=== PATIENT | female | born 1965 | race Caucasian/White ===

== ENCOUNTER → 2017-08-03 | Outpatient (CLI) | payer BC ==
[~2017-08-03] MED LIST: AZIT250T81 PO; CEFD300C3 PO; LVT.1T PO; NALT1TAB PO; SPIR50TA27 PO
--- NOTE | 2017-08-03 10:34 | Diagnostic Imaging Report ---
EXAM: US VENOUS LOWER EXT LT INDICATION: L LOWER LEG SWELLING COMPARISON: None. TECHNIQUE: Duplex, pickard-scale and color-flow imaging of the left lower extremity venous system was performed FINDINGS: The left common femoral vein, superficial femoral vein, profunda femoris, and popliteal veins are normal. These vessels show normal compressibility, color flow, and Doppler augmentation. The deep calf veins demonstrate no distinct intraluminal thrombus where seen. IMPRESSION: Negative venous Doppler of the left lower extremity. Dictated by: Dictated on workstation # [id number]
== END ==
LOC: RAD 09:45
PROVIDERS: ATTEND Family Medicine
DX: M79.89 Other specified soft tissue disorders (principal); M79.661 Pain in right lower leg

== ENCOUNTER 2017-08-11 18:33 | Emergency (ER) | payer BC ==
[~2017-08-11] VITALS: Ht 167.6 cm; Wt 101.6 kg
--- OUTSIDE RECORDS SUMMARY | 2017-08-11 18:38 | XMS REPORT | Continuity of Care Document ---
Author Author [facility] Organization [facility] Address Unknown Phone Unavailable Allergies Active Description Code Type Severity Reaction Onset Reported/Identified Relationship to Patient Clinical Status Yes celecoxib [id number] Drug Allergy Unknown N/A 03/21/2015 Yes prednisone [id number] Drug Allergy Unknown N/A 03/21/2015 Medications Problems Date Dx Coded Attending Type Code Diagnosis Diagnosed By 08/21/2014 Ot 722.10 08/21/2014 GISEL TELLEZ AESTHETICS INSTRUCTOR Ot 715.36 08/21/2014 GISEL TELLEZ AESTHETICS INSTRUCTOR Ot 717.9 08/21/2014 GISEL TELLEZ AESTHETICS INSTRUCTOR Ot 719.06 08/21/2014 GISEL TELLEZ AESTHETICS INSTRUCTOR Ot 719.46 08/21/2014 GISEL TELLEZ AESTHETICS INSTRUCTOR Ot 793.7 09/05/2014 YUANNDER DO, ADRIANA S Ot 244.9 09/05/2014 ORENDER DO, ADRIANA S Ot 611.72 09/05/2014 ORENDER DO, ADRIANA S Ot 780.79 09/05/2014 ORENDER DO, ADRIANA S Ot V70.0 09/08/2014 ORENDER DO, ADRIANA S Ot 244.9 09/08/2014 ORENDER DO, ADRIANA S Ot 611.72 09/08/2014 ORENDER DO, ADRIANA S Ot 780.79 09/08/2014 ORENDER DO, ADRIANA S Ot V70.0 09/08/2014 GISEL TELLEZ M AESTHETICS INSTRUCTOR Ot V76.12 09/14/2014 Ot 722.10 09/14/2014 GISEL TELLEZ AESTHETICS INSTRUCTOR Ot 715.36 09/14/2014 GISEL TELLEZ AESTHETICS INSTRUCTOR Ot 717.9 09/14/2014 GISEL TELLEZ AESTHETICS INSTRUCTOR Ot 719.06 09/14/2014 GISEL TELLEZ AESTHETICS INSTRUCTOR Ot 719.46 09/14/2014 GISEL TELLEZ AESTHETICS INSTRUCTOR Ot 793.7 09/14/2014 GISEL TELLEZ AESTHETICS INSTRUCTOR Ot V76.12 09/18/2014 RUSS MAYES, SY M Ot 611.72 09/28/2014 ORENDER DO, ADRIANA S Ot 244.9 09/28/2014 ORENDER DO, ADIRANA S Ot 611.72 09/28/2014 ORENDER DO, ADRIANA S Ot 780.79 09/28/2014 ORENDER DO, ADRIANA S Ot V70.0 10/19/2014 RUSS MAYES, SY Kiersten Ot 611.72 11/23/2014 RUSS MAYES, SY Kiersten Ot 611.72 12/14/2014 ORENDER DO, ADRIANA S Ot 244.9 12/14/2014 ORENDER DO, ADRIANA S Ot 611.72 12/14/2014 ORENDER DO, ADRIANA S Ot 780.79 12/14/2014 ORENDER DO, ADRIANA S Ot V70.0 01/19/2015 ORENDER DO, ADRIANA S Ot 443.9 01/19/2015 ORENDER DO, ADRIANA S Ot 729.5 03/21/2015 VICENTE PAULA UPHOLSTERY CLEANER Ot 577.0 ACUTE PANCREATITIS 03/21/2015 VICENTE PAULA UPHOLSTERY CLEANER Ot 789.00 ABDOMINAL PAIN, UNSPECIFIED SITE 06/18/2016 YUANNDER DO, ADRIANA S Ot 244.9 HYPOTHYROIDISM NOS 06/18/2016 ORENDER DO, ADRIANA S Ot 611.72 LUMP OR MASS IN BREAST 06/18/2016 YUANNDER DO, ADRIANA S Ot 780.79 OTH MALAISE FATIGUE 06/18/2016 ORENDER DO, ADRIANA S Ot V70.0 ROUTINE MEDICAL EXAM 06/18/2016 YUANNDER DO, ADRIANA S Ot 443.9 PERIPH VASCULAR DIS NOS 06/18/2016 ORENDER DO, ADRIANA S Ot 729.5 PAIN IN LIMB 06/18/2016 YUANNDER DO, ADRIANA S Ot Z12.31 ENCNTR SCREEN MAMMOGRAM FOR MALIGNANT NE 06/23/2016 ADRIANA ORTEGA DO Ot Z12.31 ENCNTR SCREEN MAMMOGRAM FOR MALIGNANT NE 08/04/2017 ADRIANA ORTEGA DO Ot M79.661 PAIN IN RIGHT LOWER LEG 08/04/2017 ADRIANA ORTEGA DO Ot M79.89 OTHER SPECIFIED SOFT TISSUE DISORDERS Procedures Results Encounters ACCT No. Visit Date/Time Discharge Status Pt. Type Provider Facility Loc./Unit Complaint [id number] 08/03/2017 09:45:00 2016 23:59:59 CLS Outpatient ADRIANA ORTEGA DO [facility] RAD R LOWER LEG SWELLING/PAIN [id number] 06/17/2016 08:15:00 2015 23:59:59 CLS Outpatient ADRIANA ORTEGA DO S [facility] RAD SCREENING [id number] 03/21/2015 16:43:00 2014 19:14:00 DIS Emergency VICENTE PAULA UPHOLSTERY CLEANER [facility] ER ABD PAIN [id number] 12/14/2014 12:33:00 2014 23:59:59 CLS Outpatient ADRIANA ORTEGA DO [facility] RAD BILAT LEG PAIN, [id number] 09/14/2014 12:32:00 2014 23:59:59 CLS Outpatient RUSS MAYES, SY Burch [facility] RAD [id number] 09/01/2014 08:35:00 2014 23:59:59 CLS Outpatient ADRIANA ORTEGA DO S [facility] RAD BILAT BREAST NODULES,YRLY LAB, FATIGUE,HYPOTHYROIS [id number] 08/21/2014 14:04:00 2013 23:59:59 CLS Outpatient GISEL TELLEZ [facility] RAD [id number] 02/14/2014 14:34:00 2013 23:59:59 CLS Outpatient GISEL TELLEZP [facility] RAD [id number] 07/31/2009 08:35:00 Document Registration
[2017-08-11] MEDS ORDERED: ANTACID SUSP 30 ML UDC (MYLANTA) PO ONE (19:30)
[2017-08-11] MEDS ORDERED: LIDOCAINE 2% VISCOUS 15 ML UDC PO ONE (19:30)
--- NOTE | 2017-08-11 19:32 | ED Abdominal Pain ---
General Chief Complaint: Abdominal/GI Problems Stated Complaint: ABD PAIN Source of Information: Patient Exam Limitations: No Limitations History of Present Illness Time Seen By Provider: 19:31 Initial Comments To ER with left upper quadrant abdominal pain that she awakened with yesterday morning. She does not have any associated nausea or vomiting. No constipation or diarrhea. No dysuria. Timing/Duration: 1-2 Days Severity/Quality: Moderate Location: [facility] Radiation: No Radiation Activities at Onset: None Associated Symptoms: Nausea/Vomiting Allergies and Home Medications Allergies Coded Allergies: celecoxib (Unverified Allergy, Unknown, 03/21/15) prednisone (Unverified Allergy, Unknown, 03/21/15) Home Medications Azithromycin 250 Mg Tablet, 250 MG PO DAILY, (Reported) Cefdinir 300 Mg Capsule, 1 EACH PO BID, #14 Prescribed by: VICENTE PAULA on 03/21/151815 Ciprofloxacin HCl 500 Mg Tablet, 500 MG PO BID, #6 Prescribed by: VICENTE PAULA on 08/11/172051 Hydrocodone/Acetaminophen 1 Each Tablet, 1 EACH PO Q4H PRN for PAIN-MODERATE TO SEVERE, #20 Prescribed by: VICENTE PAULA on 08/11/172051 Levothyroxine Sodium 100 Mcg Tablet, 100 MCG PO DAILY, (Reported) Naltrexone HCl/Bupropion HCl 1 Each Tablet.er, 1 EACH PO DAILY, (Reported) Spironolactone 50 Mg Tablet, 50 MG PO DAILY, (Reported) Review of Systems Constitutional: see HPI EENTM: No Symptoms Reported Respiratory: No Symptoms Reported Cardiovascular: No Symptoms Reported Gastrointestinal: See HPI, Abdominal Pain, Denies Constipated, Denies Diarrhea , Denies Nausea Genitourinary: No Symptoms Reported Musculoskeletal: no symptoms reported Skin: no symptoms reported Psychiatric/Neurological: No Symptoms Reported Endocrine: No Symptoms Reported Hematologic/Lymphatic: No Symptoms Reported Past Bcxsdpi-Coevrb-Zqkrgh Hx Patient Social History Recent Foreign Travel: No Contact w/Someone Who Travel: No Seasonal Allergies Seasonal Allergies: No Surgeries Surgeries: Adenoidectomy, Gallbladder, Tonsillectomy Cardiovascular Cardiac Disorders: Hypertension 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 Endocrine Endocrine Disorders: Hypothyroidsim Physical Exam Vital Signs VS - Last 72 Hours, by Label 08/11/17 19:07 Temp 97.8 Pulse 80 Resp 20 B/P (MAP) 164/102 (122) Pulse Ox 98 O2 Delivery Room Air Capillary Refill : General Appearance: WD/WN, no apparent distress HEENT: PERRL/EOMI, normal ENT inspection Respiratory: normal breath sounds, no respiratory distress, no accessory muscle use Cardiovascular: regular rate, rhythm, no murmur Gastrointestinal: normal bowel sounds, soft, tenderness (epigastric and left upper quadrant are tender to palpation.) Extremities: normal range of motion, non-tender Neurologic/Psychiatric: alert, normal mood/affect, oriented x 3 Skin: normal color, warm/dry Progress/Results/Core Measures Results/Orders Lab Results Laboratory Tests Test 08/11/17 19:11 08/11/17 19:31 Range/Units Urine Color YELLOW Urine Clarity CLEAR Urine pH 7 5-9 Urine Specific [place] 1.010 L 1.016-1.022 Urine Protein NEGATIVE NEGATIVE Urine Glucose (UA) NEGATIVE NEGATIVE Urine Ketones NEGATIVE NEGATIVE Urine Nitrite NEGATIVE NEGATIVE Urine Bilirubin NEGATIVE NEGATIVE Urine Urobilinogen NORMAL NORMAL MG/DL Urine Leukocyte Esterase 2+ H NEGATIVE Urine RBC (Auto) NEGATIVE NEGATIVE Urine RBC NONE /HPF Urine WBC 5-10 H /HPF Urine Squamous Epithelial Cells 2-5 /HPF Urine Crystals NONE /LPF Urine Bacteria FEW H /HPF Urine Casts NONE /LPF Urine Mucus NEGATIVE /LPF Urine Culture Indicated YES White Blood Count 11.2 H 4.3-11.0 10^3/uL Red Blood Count 4.99 4.35-5.85 10^6/uL Hemoglobin 15.9 11.5-16.0 G/DL Hematocrit 46 35-52 % Mean Corpuscular Volume 92 80-99 FL Mean Corpuscular Hemoglobin 32 25-34 PG Mean Corpuscular Hemoglobin Concent 35 32-36 G/DL Red Cell Distribution Width 12.2 10.0-14.5 % Platelet Count 170 130-400 10^3/uL Mean Platelet Volume 11.5 H 7.4-10.4 FL Neutrophils (%) (Auto) 70 42-75 % Lymphocytes (%) (Auto) 21 12-44 % Monocytes (%) (Auto) 8 0-12 % Eosinophils (%) (Auto) 1 0-10 % Basophils (%) (Auto) 0 0-10 % Neutrophils # (Auto) 7.9 H 1.8-7.8 X 10^3 Lymphocytes # (Auto) 2.3 1.0-4.0 X 10^3 Monocytes # (Auto) 0.9 0.0-1.0 X 10^3 Eosinophils # (Auto) 0.1 0.0-0.3 10^3/uL Basophils # (Auto) 0.0 0.0-0.1 10^3/uL Sodium Level 137 135-145 MMOL/L Potassium Level 4.0 3.6-5.0 MMOL/L Chloride Level 100 98-107 MMOL/L Carbon Dioxide Level 27 21-32 MMOL/L Anion Gap 10 5-14 MMOL/L Blood Urea Nitrogen 12 7-18 MG/DL Creatinine 0.85 0.60-1.30 MG/DL Estimat Glomerular Filtration Rate > 60 BUN/Creatinine Ratio 14 Glucose Level 106 H 70-105 MG/DL Calcium Level 9.1 8.5-10.1 MG/DL Total Bilirubin 0.7 0.1-1.0 MG/DL Aspartate Amino Transf (AST/SGOT) 10 5-34 U/L Alanine Aminotransferase (ALT/SGPT) 13 0-55 U/L Alkaline Phosphatase 71 40-136 U/L Total Protein 6.7 6.4-8.2 GM/DL Albumin 4.1 3.2-4.5 GM/DL Lipase 310 H 8-78 U/L Serum Alcohol < 10 <10 MG/DL My Orders Orders - VICENTE PAULA PIPE STRAIGHTENER Cbc With Automated Diff (08/11/17 19:20) Comprehensive Metabolic Panel (08/11/17 19:20) Lipase (08/11/17 19:20) Saline Lock/Iv-Start (08/11/17 19:20) Ct Abdomen/Pelvis W (08/11/17 19:20) Antacid Suspension (Mylanta Suspension (08/11/17 19:30) Lidocaine 2% Viscous 15 Ml (Xylocaine Vi (08/11/17 19:30) Ua Culture If Indicated (08/11/17 19:29) Alcohol (08/11/17 19:29) Iohexol Injection (Omnipaque 350 Mg/Ml 1 (08/11/17 19:45) Ns (Ivpb) (Sodium Chloride 0.9% Ivpb Bag (08/11/17 19:45) Urine Culture (08/11/17 19:11) Fentanyl Injection (Sublimaze Injection (08/11/17 20:30) Fentanyl Injection (Sublimaze Injection (08/11/17 20:25) Ns Iv 1000 Ml (Sodium Chloride 0.9%) (08/11/17 21:00) Rx-Hydrocodone/Apap 5-325 Mg (Rx-Vicodin (08/11/17 21:00) Ns Iv 1000 Ml (Sodium Chloride 0.9%) (08/11/17 20:54) Ketorolac Injection (Toradol Injection) (08/11/17 21:00) Medications Given in ED Current Medications Medications Dose Ordered Sig/Collins Route Start Time Stop Time Status Last Admin Dose Admin Al Hydrox/Mg Hydrox/Simethicone 30 ml ONCE ONCE PO 08/11/17 19:30 08/11/17 19:31 DC 08/11/17 19:29 30 ML Fentanyl Citrate 50 mcg ONCE ONCE IVP 08/11/17 20:30 08/11/17 20:31 DC 08/11/17 20:29 50 MCG Iohexol 100 ml ONCE ONCE IV 08/11/17 19:45 08/11/17 19:46 DC 08/11/17 20:08 100 ML Lidocaine HCl 15 ml ONCE ONCE PO 08/11/17 19:30 08/11/17 19:31 DC 08/11/17 19:29 15 ML Sodium Chloride 100 ml ONCE ONCE IV 08/11/17 19:45 08/11/17 19:46 DC 08/11/17 20:08 80 ML Vital Signs/I&O Vital Sign - Last 12Hours 08/11/17 19:07 Temp 97.8 Pulse 80 Resp 20 B/P (MAP) 164/102 (122) Pulse Ox 98 O2 Delivery Room Air Departure Communication (Admissions) Progress Notes 2047- pain is better at this time rating it 7 out of 10. She denies nausea currently or at any point in this illness. I discussed admission versus going home with her. She agrees that she could go home with pain control as she does not have nausea and she agrees to only eat clear liquids for 24 hours. She agrees to return to ER for any nausea, fevers or worsening pain. She agrees to follow-up with Dr. Kasper later this week for recheck of symptoms and labs. Impression Impression: Primary Impression: Pancreatitis Additional Impression: Urinary tract infection Disposition: 01 HOME, SELF-CARE Condition: Stable Departure-Patient Inst. Decision time for Depature: 20:28 Referrals: ADRIANA KASPER DO (PCP/Family) Primary Care Physician Patient Instructions: Pancreatitis (DC) Add. Discharge Instructions: 1. Pain medication as directed 2. Return to ER for any fevers, worsening pain, vomiting. You may follow a clear liquid diet for the next 24 hours. This would include anything that you can see through such as Jell-O, chicken broth, Gatorade, Pedialyte. Follow-up with Dr. Kasper. Call her office tomorrow to make an appointment to be seen this week for recheck. All discharge instructions reviewed with patient and/or family. Voiced understanding. Scripts Ciprofloxacin HCl (Cipro) 500 Mg Tablet 500 MG PO BID, #6 TAB Prov: VICENTE PAULA APRN 08/11/17 Hydrocodone/Acetaminophen (Rose 5-325 Tablet) 1 Each Tablet 1 EACH PO Q4H Y for PAIN-MODERATE TO SEVERE, #20 TAB Prov: VICENTE PAULA APRN 08/11/17 Work/School Note: Work Release Form Date Seen in the Emergency Department: Aug 11, 2017 Return to Work: Aug 14, 2017 Copy Copies To 1: ADRIANA KASPER PETER J APRN Aug 11, 2017 19:32
[2017-08-11 19:38] LABS: BASOPHILS % (AUTO) 0 % (0-10); EOSINOPHILS # (AUTO) 0.1 10^3/uL (0.0-0.3); EOSINOPHILS % (AUTO) 1 % (0-10); LYMPHOCYTES # (AUTO) 2.3 X 10^3 (1.0-4.0); LYMPHOCYTES % (AUTO) 21 % (12-44); MEAN CORPUSCULAR HEMOGLOBIN 32 PG (25-34); MEAN CORPUSCULAR HGB CONC 35 G/DL (32-36); MEAN CORPUSCULAR VOLUME 92 FL (80-99); MEAN PLATELET VOLUME 11.5 FL (7.4-10.4); MONOCYTES # (AUTO) 0.9 X 10^3 (0.0-1.0); MONOCYTES % (AUTO) 8 % (0-12); NEUTROPHILS # (AUTO) 7.9 X 10^3 (1.8-7.8); NEUTROPHILS % (AUTO) 70 % (42-75); PLATELET COUNT 170 10^3/uL (130-400); RED BLOOD COUNT 4.99 10^6/uL (4.35-5.85); RED CELL DISTRIBUTION WIDTH 12.2 % (10.0-14.5); WHITE BLOOD COUNT 11.2 10^3/uL (4.3-11.0)
[2017-08-11 19:39] LABS: BILIRUBIN,URINE NEGATIVE (NEGATIVE); KETONES,URINE NEGATIVE (NEGATIVE); LEUKOCYTE ESTERASE ,URINE 2+ (NEGATIVE); NITRITE,URINE NEGATIVE (NEGATIVE); PH,URINE 7 (5-9); PROTEIN,URINE NEGATIVE (NEGATIVE); UROBILINOGEN,URINE NORMAL (NORMAL)
[2017-08-11] MEDS ORDERED: NS 100 ML (IVPB) BAG IV ONE (19:45)
[2017-08-11] MEDS ORDERED: IOHEXOL 350 MG/ML 100 ML (OMNIPAQUE 350) VIAL IV ONE (19:45)
[2017-08-11 19:59] LABS: ALANINE AMINOTRANSFERASE 13 U/L (0-55); ALBUMIN 4.1 GM/DL (3.2-4.5); ALCOHOL < 10 MG/DL (<10); ANION GAP 10 MMOL/L (5-14); ASPARTATE AMINO TRANSFERASE 10 U/L (5-34); BILIRUBIN,TOTAL 0.7 MG/DL (0.1-1.0); BLOOD UREA NITROGEN 12 MG/DL (7-18); BUN/CREATININE RATIO 14; CALCIUM 9.1 MG/DL (8.5-10.1); CARBON DIOXIDE 27 MMOL/L (21-32); CHLORIDE 100 MMOL/L (98-107); CREATININE SERUM 0.85 MG/DL (0.60-1.30); GFR ESTIMATED > 60; GLUCOSE 106 MG/DL (70-105); LIPASE 310 U/L (8-78); SODIUM 137 MMOL/L (135-145); TOTAL PROTEIN 6.7 GM/DL (6.4-8.2)
[2017-08-11] MEDS ORDERED: fentaNYL INJECTION 100 MCG/2 ML AMP ONE (20:25)
[2017-08-11] MEDS ORDERED: fentaNYL INJECTION 100 MCG/2 ML AMP IVP ONE (20:30)
--- NOTE | 2017-08-11 20:32 | Diagnostic Imaging Report ---
PROCEDURE: CT abdomen and pelvis with contrast. TECHNIQUE: Multiple contiguous axial images were obtained through the abdomen and pelvis after administration of intravenous contrast. INDICATION: Left upper quadrant pain. History of pancreatitis. COMPARISON: 03/21/2015 FINDINGS: The lung bases are clear. The heart appears normal in size. The liver is normal. Calcified granulomas are seen in the spleen. The adrenal glands appear normal. The kidneys are unremarkable. There is mild peripancreatic edema about the body and tail of the pancreas. There is mild fatty atrophy of the pancreas. No focal areas of non-enhancement or peripancreatic fluid collections are seen. The bowel loops are nondistended. There is no evidence of obstruction. The appendix is normal. No free fluid is seen in the pelvis. No acute osseous abnormality is seen. IMPRESSION: 1. Mild peripancreatic edema, concerning for pancreatitis, please correlate with lipase. No areas of necrosis or peripancreatic fluid collections are seen. Dictated by: Dictated on workstation # [id number]
[2017-08-11] MEDS ORDERED: HYDR-757 PO (20:52)
[2017-08-11] MEDS ORDERED: CIPR-225 PO (20:52)
[2017-08-11] MEDS ORDERED: NS IV 1000 ML 1,000 ML ONE (20:54)
[2017-08-11] MEDS ORDERED: KETOROLAC 30 MG/ML VIAL IVP ONE (21:00)
[2017-08-11] MEDS ORDERED: RX-HYDROCODONE/APAP 5/325 MG #4 TAB PK PO PRN (21:00)
[2017-08-11] MEDS ORDERED: NS IV 1000 ML 1,000 ML IV SCH (21:00)
[2017-08-11 21:48] VITALS: BP 175/104
== END 2017-08-11 21:48 | disposition home or self-care (01) ==
LOC: EDUNIT# 18:33 → ER 18:34
DX: K85.90 Acute pancreatitis without necrosis or infection, unspecified (principal); N39.0 Urinary tract infection, site not specified; I10 Essential (primary) hypertension; E03.9 Hypothyroidism, unspecified; Z90.49 Acquired absence of other specified parts of digestive tract; Z90.89 Acquired absence of other organs
CPT/HCPCS: 36415; 74177; 80053; 80320; 81000; 83690; 85025; 87088

== ENCOUNTER → 2018-08-18 | Outpatient (CLI) | payer BC ==
[~2018-08-18] MED LIST changes: +CIPR-225 PO; +HYDR-4226 PO
--- NOTE | 2018-08-18 13:43 | Diagnostic Imaging Report ---
INDICATION: Routine screening. COMPARISON: Comparison is made with prior mammograms from 06/17/2016 and 08/21/2014. TECHNIQUE: 2D and 3D bilateral screening mammography was performed with computer-aided detection (CAD) system. FINDINGS: Both breasts are heterogeneously dense, limiting the sensitivity of mammography. The circumscribed nodule with biopsy marker clip in the retroareolar right breast is again noted and appears stable. Biopsy clip in the lateral left breast with adjacent nodule also appears stable. No new mass or malignant-appearing microcalcifications are seen. The axillae are unremarkable. IMPRESSION: No mammographic features suspicious for malignancy are identified. ACR BI-RADS Category 2: Benign findings. Result letter will be mailed to the patient. Note: At least 10% of breast cancer is not imaged by mammography. Dictated by: Dictated on workstation # [id number]
--- NOTE | 2018-08-18 17:43 | Diagnostic Imaging Report ---
INDICATION: Claudication. FINDINGS: Arterial blood pressures were recorded in the right and left brachial artery and in the right and left posterior tibial and dorsalis pedis arteries. The ankle-brachial index on the right is 1.26 and on the left is 1.14. IMPRESSION: Normal bilateral ankle brachial indices. Dictated by: Dictated on workstation # [id number]
== END ==
LOC: RAD 10:28
PROVIDERS: ATTEND Nurse Practitioner Family
DX: Z12.31 Encounter for screening mammogram for malignant neoplasm of breast (principal); I73.9 Peripheral vascular disease, unspecified
CPT/HCPCS: 77067; 93922

== ENCOUNTER → 2018-12-08 | Outpatient (CLI) | payer BC ==
--- NOTE | 2018-12-08 16:05 | Diagnostic Imaging Report ---
INDICATION: Shortness of breath and cough. EXAMINATION: PA and lateral chest. FINDINGS: The heart size and pulmonary vascularity are normal. The lungs are clear. There are no effusions or pneumothoraces. IMPRESSION: Negative chest. Dictated by: Dictated on workstation # [id number]
== END ==
LOC: RAD 14:20
PROVIDERS: ATTEND Nurse Practitioner Family
DX: R06.02 Shortness of breath (principal); R05 Cough
CPT/HCPCS: 71046

== ENCOUNTER → 2019-10-14 | Outpatient (CLI) | payer BC, OTHER ==
--- NOTE | 2019-10-17 08:44 | Diagnostic Imaging Report ---
INDICATION: Screening. TECHNIQUE: The current study was also evaluated with a Computer Aided Detection (CAD) system. 3D Tomographic imaging was also performed. COMPARISON: 08/18/2018, 06/17/2016, and 08/21/2014. FINDINGS: There are scattered fibroglandular densities bilaterally. There are nodular densities in both breasts, both of which have surgical clips near them. There is no new dominant mass, spiculated lesion, or suspicious calcification identified. There are a few benign type calcifications. The skin, nipples, and axillae are unremarkable. IMPRESSION: Benign findings. ACR BI-RADS Category 2: Benign findings. Result letter will be mailed to the patient. Note: At least 10% of breast cancer is not imaged by mammography. Dictated by: Dictated on workstation # [id number]
== END ==
LOC: RAD 15:03
PROVIDERS: ATTEND Family Medicine
DX: Z12.31 Encounter for screening mammogram for malignant neoplasm of breast (principal)
CPT/HCPCS: 77067